=== PATIENT | female | born 1985 | race African-American/Black ===

== ENCOUNTER 2017-07-20 19:14 | Emergency (ER) | payer OTHER ==
[~2017-07-20] VITALS: Ht 162.6 cm; Wt 92.5 kg
[2017-07-20] MEDS ORDERED: ACETAMINOPHEN 325 MG TAB PO ONE ×2 (20:01→21:15)
[2017-07-20] MEDS ORDERED: ACETAMINOPHEN 325 MG TAB ONE (20:05)
--- NOTE | 2017-07-20 20:48 | Diagnostic Imaging Report ---
CHEST 2 VIEWS, Technique: CHEST 2 VIEWS Comparison: None Clinical history: Cough, fever DISCUSSION: Unremarkable appearance of the heart, mediastinum, lungs and pleural spaces. IMPRESSION: No acute abnormality Signed by: Dr Dipti Still MD on 07/20/2017 8:45 PM
== END 2017-07-20 23:30 | disposition home or self-care (01) ==
LOC: ER 19:14
DX: R50.9 Fever, unspecified (principal); R05 Cough; B34.9 Viral infection, unspecified
CPT/HCPCS: 71020; 87400; 99283

== ENCOUNTER 2021-06-11 10:48 | Emergency (ER) | payer SELFPAY ==
[~2021-06-11] VITALS: Ht 165.1 cm; Wt 106.6 kg
[2021-06-11] MEDS ORDERED: IBUPROFEN600 MG PO (11:33)
[2021-06-11] MEDS ORDERED: SODIUM CHLORIDE 0.9% 50ML 50 ML ONE (18:12)
[2021-06-11] MEDS ORDERED: IOPAMIDOL 370 MG/ML 200 ML INFUS..BTL INJ ONE (18:13)
== END 2021-06-11 12:01 | disposition home or self-care (01) ==
LOC: FSED 10:55
DX: M54.10 Radiculopathy, site unspecified (principal); D64.9 Anemia, unspecified
CPT/HCPCS: 73030; 93005; 99283; Q9967

== ENCOUNTER 2021-07-20 17:52 | Emergency (ER) | payer SELFPAY ==
[~2021-07-20] VITALS: Ht 165.1 cm; Wt 108.4 kg
[~2021-07-20 17:52] MED LIST: IBUPROFEN600 MG PO
[2021-07-20] MEDS ORDERED: KETOROLAC TROMETHAMINE 30 MG/ML VIAL IV STA (18:38)
[2021-07-20] MEDS ORDERED: SODIUM CHLORIDE 0.9% 1000ML 1,000 ML IV SCH (18:45)
[2021-07-20] MEDS ORDERED: TESSALON PERLE100 MG PO (19:54)
[2021-07-20] MEDS ORDERED: IBUPROFEN600 MG PO (19:54)
[2021-07-20] MEDS ORDERED: GUAIFENESIN-DM 15 ML PO (19:54)
[2021-07-20 20:16] VITALS: BP 113/95
== END 2021-07-20 20:16 | disposition home or self-care (01) ==
LOC: FSED 18:00
DX: J06.9 Acute upper respiratory infection, unspecified (principal); D64.9 Anemia, unspecified
CPT/HCPCS: 71045; 80053; 85025; 96374; 99283; J1885; J7030

== ENCOUNTER 2024-02-27 02:05 | Emergency (ER) | payer BC, OTHER ==
[~2024-02-27] VITALS: Ht 162.6 cm; Wt 105.7 kg
[~2024-02-27 02:05] MED LIST changes: +CYCLOBENZAPRINE5 MG PO; +GUAIFENESIN-DM 15 ML PO; +TESSALON PERLE100 MG PO
[2024-02-27 02:17] VITALS: TEMP 98.2
[2024-02-27] MEDS ORDERED: MACROBID 100 M100 MG PO (02:33)
[2024-02-27 02:45] VITALS: PULSE 99; RESP 18; O2SAT 99
== END 2024-02-27 02:50 | disposition home or self-care (01) ==
LOC: FSED 02:08
DX: R10.30 Lower abdominal pain, unspecified (principal); N39.0 Urinary tract infection, site not specified; D64.9 Anemia, unspecified
CPT/HCPCS: 99283

== ENCOUNTER 2024-03-15 09:36 | Emergency (ER) | payer BC, OTHER ==
[~2024-03-15] VITALS: Ht 162.6 cm; Wt 105.7 kg
[~2024-03-15 09:36] MED LIST changes: +MACROBID 100 M100 MG PO
[2024-03-15] MEDS: ACETAMINOPHEN 325 MG TAB PO ONE (10:45)
[2024-03-15] MEDS: KETOROLAC TROMETHAMINE 30 MG/ML VIAL IM ONE (10:45)
[2024-03-15] MEDS ORDERED: EXCEDRIN MIGRA1 EAC3 PO (11:02)
[2024-03-15] MEDS ORDERED: CEFDINIR300 MG PO (11:02)
[2024-03-15] MEDS ORDERED: DIPHENHYDRAMINE25 M2 PO (11:02)
[2024-03-15 12:00] VITALS: PULSE 79; RESP 18; TEMP 98.4; O2SAT 98
[2024-03-15] MEDS ORDERED: MOTRIN800 MG PO (12:14)
== END 2024-03-15 12:00 | disposition home or self-care (01) ==
LOC: FSED 09:39
DX: R51.9 Headache, unspecified (principal); J02.0 Streptococcal pharyngitis; D64.9 Anemia, unspecified; Z11.52 Encounter for screening for COVID-19
CPT/HCPCS: 0223U; 70450; 80307; 81003; 81025; 83518; 87400; 99283; J1885